=== PATIENT | male | born 2000 | race Caucasian/White ===

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

== ENCOUNTER 2020-01-11 19:36 | Emergency (ER) | payer OTHER ==
[2020-01-11] MEDS ORDERED: LORazepam 2 MG/ML VIAL IM STA (20:11)
--- NOTE | 2020-01-11 20:56 | ED Physician Documentation ---
PD HPI ALTERED MENTAL STATUS - Stated complaint Stated Complaint: DIFF TALKING - Chief complaint Chief Complaint: Neuro - History obtained from History obtained from: Patient, Family (dad) - Additional information Additional information: 19-year-old gentleman with history of some psychiatric disorders, OCD and occasional tics suddenly stopped talking about an hour ago. His tics also got worse at the same time. Most of the history is from the dad but the patient is able to nod and shake his head to questions. Review of Systems Unable to obtain: Uncooperative PD PAST MEDICAL HISTORY - Past Medical History Cardiovascular: None Respiratory: None Endocrine/Autoimmune: None GI: None : None HEENT: None Psych: Depression, Anxiety Musculoskeletal: None Derm: None - Past Surgical History Past Surgical History: No HEENT: Other - Present Medications Home Medications: Ambulatory Orders Medication Instructions Recorded Confirmed clonazePAM [Clonazepam] 1 mg PO BID 04/07/17 05/01/17 Venlafaxine ER [Effexor ER] 187.5 mg PO DAILY 03/27/18 03/27/18 - Allergies Allergies/Adverse Reactions: Allergies Allergy/AdvReac Type Severity Reaction Status Date / Time No Known Drug Allergies Allergy Verified 03/30/18 13:10 - Social History Does the pt smoke?: No Smoking Status: Never smoker Does the pt drink ETOH?: No Does the pt have substance abuse?: No - Immunizations Immunizations are current?: Yes - POLST Patient has POLST: No PD ED PE NORMAL - Vitals Vital signs reviewed: Yes - General General: No acute distress, Well developed/nourished - HEENT HEENT: PERRL, EOMI, Ears normal, Pharynx benign - Neck Neck: Supple, no meningeal sign, No bony TTP - Cardiac Cardiac: RRR, No murmur - Respiratory Respiratory: No respiratory distress, Clear bilaterally - Abdomen Abdomen: Normal bowel sounds, Soft, Non tender - Back Back: No CVA TTP, No spinal TTP - Derm Derm: Normal color, Warm and dry - Extremities Extremities: No edema, No calf tenderness / cord - Neuro Neuro: No motor deficit, No sensory deficit, Normal speech Eye Opening: Spontaneous Motor: Obeys Commands Verbal: None GCS Score: 11 Results - Vitals Vitals: Vital Signs - 24 hr 01/11/20 01/11/20 19:39 20:06 Temperature 37.1 C Heart Rate 82 64 Respiratory 18 18 Rate Blood Pressure 150/77 H 129/85 H O2 Saturation 100 98 Oxygen O2 Source Room air PD MEDICAL DECISION MAKING - ED course ED course: This is a 19-year-old who presents with an acute aphasia. He is able to read and write fluently though, and his neurologic exam is otherwise normal except for some tics. This is very consistent with a conversion disorder. We talked at length with the patient and his father about this diagnosis, the pathophysiology and he seemed very understanding. We trialed an injection of Ativan which helped with the tics but did not help with the aphasia. They were offered at that point either tele-psychiatric Consultation, further medications, or discharge. They opted for trial of Haldol and then discharged home. Departure - Departure Disposition: 01 Home, Self Care Clinical Impression: Conversion disorder Condition: Good Record reviewed to determine appropriate education?: Yes Instructions: ED Conversion Disdr Conversion Reac Comments: Return or call your psychiatrist in the morning if not better, sooner for new or worsening symptoms.
[2020-01-11] MEDS ORDERED: haloperidoL 1 MG TABLET PO STA (21:06)
[2020-01-11 21:18] VITALS: BP 130/85
== END 2020-01-11 21:15 | disposition home or self-care (01) ==
LOC: ED 19:36
DX: F44.9 Dissociative and conversion disorder, unspecified (principal); F95.9 Tic disorder, unspecified; F42.9 Obsessive-compulsive disorder, unspecified
CPT/HCPCS: 96372; 99281; 99283; A9270; J2060

== ENCOUNTER 2020-08-10 18:39 | Outpatient (CLI) | payer OTHER | END 2020-08-10 18:40 | disposition critical access hospital (66) | LOC: EMS 18:39 | PROVIDERS: ATTEND Emergency Medicine | DX: G83.9 Paralytic syndrome, unspecified (principal); R47.01 Aphasia | CPT/HCPCS: A0425; A0429 ==

== ENCOUNTER 2020-08-10 19:19 | Emergency (ER) | payer OTHER ==
[2020-08-10] MEDS ORDERED: HALOPERIDOL 5 MG/ML VIAL IM STA (22:59)
[2020-08-10 23:30] VITALS: BP 153/74
--- NOTE | 2020-08-11 00:20 | ED Physician Documentation ---
History of Present Illness - Stated complaint Stated Complaint: AMS - Chief complaint Chief Complaint: General - History obtained from History obtained from: Family (Father) - Additonal information Additional information: 20-year-old male with past medical history of conversion disorder with catatonic behavior, anxiety and depression on Zoloft and Klonopin as needed presents with unresponsiveness upon waking at 3 PM. His father accompanies him to the emergency department today, stating that he has had episodes like this in the past but never this severe. He was acting normal yesterday and then upon waking from a nap at 3 PM today he was minimally speaking. This worsened to the point that he was not talking at all and was staring at the wall, not interacting with family. Upon arrival to the emergency department patient is catatonic, staring at the wall and not interacting. Further history limited by this. Review of Systems Unable to obtain: AMS PD PAST MEDICAL HISTORY - Past Medical History Past Medical History: Yes Cardiovascular: None Respiratory: None Endocrine/Autoimmune: None GI: None : None HEENT: None Psych: Depression, Anxiety Musculoskeletal: None Derm: None - Past Surgical History Past Surgical History: No HEENT: Other - Present Medications Home Medications: Ambulatory Orders Medication Instructions Recorded Confirmed clonazePAM [Clonazepam] 1 mg PO BID 04/07/17 05/01/17 Venlafaxine ER [Effexor ER] 187.5 mg PO DAILY 03/27/18 03/27/18 - Allergies Allergies/Adverse Reactions: Allergies Allergy/AdvReac Type Severity Reaction Status Date / Time No Known Drug Allergies Allergy Verified 08/10/20 19:32 - Social History Does the pt smoke?: No Smoking Status: Never smoker Does the pt drink ETOH?: No Does the pt have substance abuse?: No - Immunizations Immunizations are current?: Yes - POLST Patient has POLST: No PD ED PE NORMAL - Vitals Vital signs reviewed: Yes - General General: No acute distress, Well developed/nourished, Other (eyes open, staring at wall, not responding to verbal cues) - HEENT HEENT: Atraumatic, PERRL, EOMI - Neck Neck: Supple, no meningeal sign - Cardiac Cardiac: RRR - Respiratory Respiratory: No respiratory distress, Clear bilaterally - Abdomen Abdomen: Non tender, Non distended - Derm Derm: Normal color - Extremities Extremities: No deformity - Neuro Neuro: Other (staring at wall, without obvious signs of distress) - Psych Psych: Other (catatonic behavior) Results - Vitals Vitals: Vital Signs - 24 hr 08/10/20 08/10/20 19:28 23:29 Temperature 37.4 C Heart Rate 93 91 Respiratory 14 14 Rate Blood Pressure 152/74 H 153/74 H O2 Saturation 98 98 Oxygen O2 Source Room air PD MEDICAL DECISION MAKING - ED course ED course: 20-year-old man with history of conversion disorder, anxiety, depression presents with catatonic behavior. Will trial Haldol since this is worked for him in the past. He has a psychiatrist that he is going to follow-up with however father cannot remember the name. 12:30am - per RN report, patient got up out of bed and walked out the front door. father is going to look for him now. 1am - father found the patient and they are in the car together. I communicated through nursing that we would like them to return to the ED to reassess but they may just drive home at this time.
== END 2020-08-11 00:28 | disposition left against medical advice (07) ==
LOC: EDUNIT# → ED 19:19
DX: F44.89 Other dissociative and conversion disorders (principal); F06.1 Catatonic disorder due to known physiological condition; F41.9 Anxiety disorder, unspecified; F32.9 Major depressive disorder, single episode, unspecified
CPT/HCPCS: 96372; 99281; 99283

== ENCOUNTER 2020-11-19 08:00 | Outpatient (CLI) | payer OTHER ==
[2020-11-19 18:08] LABS: BASOPHILS % (AUTO) 0.4 %; EOSINOPHILS # (AUTO) 0.2 10^3/uL (0.0-0.7); EOSINOPHILS % (AUTO) 2.4 %; HCT - HEMATOCRIT 46.4 % (42.0-52.0); HGB - HEMOGLOBIN 15.6 g/dL (14.0-18.0); LYMPHOCYTES # (AUTO) 2.3 10^3/uL (1.5-3.5); LYMPHOCYTES % (AUTO) 30.1 %; MEAN CORPUSCULAR HEMOGLOBIN 29.8 pg (27.0-31.0); MEAN CORPUSCULAR HGB CONC 33.6 g/dL (32.0-36.0); MEAN CORPUSCULAR VOLUME 88.7 fL (80.0-94.0); MEAN PLATELET VOLUME 9.3 fL (7.4-11.4); MONOCYTES # (AUTO) 0.7 10^3/uL (0.0-1.0); MONOCYTES % (AUTO) 8.7 %; NEUTROPHILS # (AUTO) 4.5 10^3/uL (1.5-6.6); PLT - PLATELET COUNT 293 10^3/uL (130-450); RED BLOOD COUNT 5.23 10^6/uL (4.70-6.10); RED CELL DISTRIBUTION WIDTH 12.2 % (12.0-15.0); WHITE BLOOD COUNT 7.8 x10^3/uL (4.8-10.8)
[2020-11-19 18:50] LABS: ALBUMIN 4.5 g/dL (3.2-5.5); ALBUMIN/GLOBULIN RATIO 1.5 (1.0-2.2); BILIRUBIN,TOTAL 0.5 mg/dL (0.2-1.0); CALCIUM 9.8 mg/dL (8.5-10.3); CREATININE 0.9 mg/dL (0.6-1.2); POTASSIUM 4.2 mmol/L (3.5-5.0); TOTAL PROTEIN 7.6 g/dL (6.7-8.2)
== END 2020-11-19 23:59 | disposition home or self-care (01) ==
LOC: LAB.S 08:00
PROVIDERS: ATTEND Physician Assistant Medical
DX: R50.9 Fever, unspecified (principal); R53.83 Other fatigue; B34.9 Viral infection, unspecified; Z20.822 Contact with and (suspected) exposure to COVID-19
CPT/HCPCS: 36415; 80053; 85025

== ENCOUNTER 2020-11-30 12:04 | Outpatient (CLI) | payer OTHER ==
--- NOTE | 2020-11-30 12:39 | XRAY Report ---
PROCEDURE: Chest 2 View X-Ray INDICATIONS: DYSPNEA ON EXERTION TECHNIQUE: 2 view(s) of the chest. COMPARISON: None. FINDINGS: Surgical changes and devices: None. Lungs and pleura: No pleural effusions or pneumothorax. Increased bronchovascular markings in bilate ral hilar region are seen with mild bronchial wall thickening. No definite focal infiltrate. Mediastinum: Mediastinal contours are normal. Heart size is normal. Bones and chest wall: No suspicious bony abnormalities. Soft tissues appear unremarkable. IMPRESSION: Suggestion of mild reactive airway disease such as bronchitis or asthma. No focal infilt rate, pleural effusion or pneumothorax. Reviewed by: Erick Sabillon MD on 11/30/2020 12:38 PM PDT Approved by: Erick Sabillon MD on 11/30/2020 12:38 PM PDT Station ID: [id number]
[2020-11-30 14:54] LABS: BASOPHILS % (AUTO) 0.7 %; EOSINOPHILS # (AUTO) 0.1 10^3/uL (0.0-0.7); EOSINOPHILS % (AUTO) 1.5 %; HCT - HEMATOCRIT 45.1 % (42.0-52.0); LYMPHOCYTES # (AUTO) 1.9 10^3/uL (1.5-3.5); LYMPHOCYTES % (AUTO) 31.9 %; MEAN CORPUSCULAR HEMOGLOBIN 29.5 pg (27.0-31.0); MEAN CORPUSCULAR HGB CONC 33.3 g/dL (32.0-36.0); MEAN CORPUSCULAR VOLUME 88.6 fL (80.0-94.0); MEAN PLATELET VOLUME 9.8 fL (7.4-11.4); MONOCYTES # (AUTO) 0.5 10^3/uL (0.0-1.0); MONOCYTES % (AUTO) 8.5 %; NEUTROPHILS # (AUTO) 3.4 10^3/uL (1.5-6.6); NEUTROPHILS % (AUTO) 57.2 %; PLT - PLATELET COUNT 244 10^3/uL (130-450); RED BLOOD COUNT 5.09 10^6/uL (4.70-6.10); RED CELL DISTRIBUTION WIDTH 12.3 % (12.0-15.0); WHITE BLOOD COUNT 5.9 x10^3/uL (4.8-10.8)
[2020-11-30 15:19] LABS: INFECTIOUS MONONUCLEOSIS NEGATIVE (Negative)
[2020-11-30 15:36] LABS: ALBUMIN 4.8 g/dL (3.2-5.5); ALBUMIN/GLOBULIN RATIO 1.7 (1.0-2.2); CALCIUM 9.9 mg/dL (8.5-10.3); CREATININE 0.9 mg/dL (0.6-1.2); MAGNESIUM 2.1 mg/dL (1.7-2.8); POTASSIUM 4.1 mmol/L (3.5-5.0); TOTAL PROTEIN 7.7 g/dL (6.7-8.2)
[2020-12-03 07:17] LABS: CMV DNA QN RT PCR <200 IU/mL; SOURCE BLOOD
[2020-12-03 18:46] LABS: SOURCE WHOLE BLOOD
== END 2020-11-30 12:05 | disposition home or self-care (01) ==
LOC: DI.S 12:04
PROVIDERS: ATTEND Nurse Practitioner Family
DX: R06.09 Other forms of dyspnea (principal); R53.83 Other fatigue
CPT/HCPCS: 36415; 80053; 81599; 82607; 83735; 85025; 86308; 87497; 87798

== ENCOUNTER 2020-12-27 14:49 | Outpatient (CLI) | payer OTHER ==
[2020-12-27 15:50] VITALS: BP 111/71
--- NOTE | 2020-12-27 15:50 | SLEEP CARE CONSULTATION ---
Information from patient questionnaire entered by Amelia Guzman. I have reviewed and concur with the information entered by Amelia Guzman. This document represents the service I personally performed and the decisions made by me, Kia Vital ARNP. History of Present Illness Service Date and Time: 12/27/2020 1449 Reason for Visit: New patient Chief Complaint: reports: Unrefreshed sleep, Excessive daytime sleepiness, Fatigue, Other (sleeping 10-12 hours a night) Date of Onset: 7 weeks Usual bedtime: 12 am Time it takes to fall asleep: 1 hour Snores at night: No Observed to quit breathing while asleep: No Sleeps alone due to snoring: No (N/A) Number of times waking at night: 3 Reasons for waking at night: reports: Other (unknown reason). denies: Choking, Gasping for air Toss, Turn, or Twitch while sleeping: Yes Recalls having dreams: Yes Usually gets out of bed at: 11:30 am Feels refreshed in the morning: No Morning headache: Yes (resolves when I take painkillers) Sleepy or fatigued during the day: Yes Ever fallen asleep while driving: No Takes day naps: No Dreams during day naps: Yes Prior sleep studies: Yes Year and Where: 2016 - [facility], [place] in [place], [place] Additional HPI information: I had the pleasure of seeing MER[facility] MCNEILL today regarding the possibility of him having a sleep disorder. His current complaints are excessive daytime sleepiness, fatigue and unrefreshed sleep. He states that no one has told him he snores or has any pauses in breathing when he sleeps. He is just very tired during the day and does not feel like he is getting rested when he sleeps. He had a previous sleep study around March 2017 at [facility] when he was 16 years old. He had a Moderna Covid vaccination about 7 weeks ago. Since that time he feels weak, not wanting to move much and sleeping 11-12 hours a night. He doesn't feel rested when he wakes up. He is not working because he does not have energy to work. His PCP has referred him to cardiology for some chest discomfort he has experienced and is checking for a stomach ulcer too. He feels he has always been more tired than other, especially since taking sertra line. He has a history of depression. He states in the last year his depression has improved with Transcranial Magnetic Stimulation therapy he did this in the last 6 months. He stopped this 2 weeks ago. He states he has chronic congestion in his nose, hard to breathe effectively. He usually can fall asleep within an hour of laying down. He occasionally has taken Melatonin to help his go to sleep. He uses a sinus rinse and sometimes Flonase to reduce the nose congestion. - Parasomnia Symptoms Ever been unable to move upon waking from sleep: No Walks in sleep: No Talks in sleep: No Ever acted out dreams in sleep: Yes (occasionally will kick or hit something as waking up) Ever felt weak in the knees when startled or emotional: No Bothered by creepy, crawly, restless sensations in legs: Yes (feet twitch when he lays down) Problems with memory or concentration: No Subjective Initial [place] Sleepiness Scale score: 3 (in 2020) Past Medical History Past Medical History: reports: Anxiety, Depression Social History The patient's occupation is a Not Employed, to tired to work. Patient is Single and lives in [place]. Have you smoked in the past 12 months: No Alcohol use: No Caffeine use: No Family History Family history of sleep disordered breathing: Yes Family Hx Sleep Apnea: Mother: Snoring, Sleep apnea - Treated (uncle), Father: Snoring, Other: Sleep apnea - Treated Allergies and Home Medications Drug allergies reviewed: Yes (NKDA) Home medication list reviewed: Yes Allergy and home medication list: Sertraline Flonase Terbinafine Multivitamins Review of Systems Cardiovascular: reports: chest pain. denies: high blood pressure Respiratory: reports: shortness of breath Gastrointestinal: reports: nausea, abdominal pain. denies: heartburn Neurological: reports: headaches Psychiatric: reports: anxiety, depression Ear/Nose/Throat: reports: nasal congestion, sinus problems, injury to nose (deviated septum repaired and turbinate reduction too in Fall 2018), other (septoplasty). denies: tonsillectomy, wisdom teeth removed Endocrine: reports: sluggishness, excessive thirst, unexplained weakness. denies: thyroid disease Immunologic: reports: allergies to food or environment (lactose intolerant) Physical Exam Blood Pressure: 111/71 Cuff size: wrist Heart Rate: 82 O2 Saturation: 98 Height: 6 ft 3 in Weight: 178 lb Body Mass Index: 22.2 BMI Classification: Healthy weight Neck circumference: 14.75 (inches) Mouth and throat: narrow oropharynx Hard palate: normal Uvula: normal Uvula visualization: 100% Mallampati Class I Tongue: enlarged in size with teeth whitaker on lateral edges Tonsils: small Chin and jaw: normal size and position Neck: normal w/o lymphadenopathy or thyromegaly Heart: regular rate and rhythm Lungs: clear bilaterally Impression and Plan 1. Suspected Obstructive Sleep Apnea-Hypopnea Syndrome, as suggested by a history of unrefreshed sleep, cognitive impairment, and excessive daytime sleep iness. Narrow oropharynx and obesity are common predisposing factors for obstructive sleep apnea-hypopnea syndrome. I recommend proceeding to polysomnography to confirm the diagnosis and to assess severity. If the patient has significant sleep disordered breathing, a manual CPAP titration study will also be performed to find the optimal treatment pressure. I informed the patient of what the sleep studies involve and after some discussion, obtained agreement to proceed. The pathophysiology of obstructive sleep apnea-hypopnea syndrome was discussed with the patient and health risks of cardiovascular and cerebrovascular disease if not treated. Risks of drowsy driving discussed in detail and patient advised to avoid long distance driving and to pullman car clerk at the first sign of drowsiness. Patient agreed to plan. * Schedule polysomnography +- manual CPAP titration study and return in 1-2 weeks after the study to discuss result and initiate therapy. * Avoid long distance driving or driving when feeling sleepy. * Avoid, sedative and muscle relaxant around bedtime. * Maintain a healthy weight. * Review instructions provided by trained office staff on how to prepare for the sleep study. * Return for follow-up after sleep study completed. Counseling Topics: Weight control Visit Type: In Office Time Spent with Patient (minutes): 30 Provider Statement: I spent 100% of the Face to Face Visit with the patient with greater than 50% spent counseling the patient and coordination of care.
== END 2020-12-27 14:50 | disposition home or self-care (01) ==
LOC: SC 14:49
PROVIDERS: ATTEND Nurse Practitioner Family
DX: G47.10 Hypersomnia, unspecified (principal); G47.8 Other sleep disorders; R41.89 Other symptoms and signs involving cognitive functions and awareness
CPT/HCPCS: 99203; 99212

== ENCOUNTER 2021-01-03 13:09 | Outpatient (CLI) | payer OTHER | END 2021-01-03 13:10 | disposition home or self-care (01) | LOC: SC 13:09 | PROVIDERS: ATTEND Nurse Practitioner Family | DX: G47.33 Obstructive sleep apnea (adult) (pediatric) (principal); R09.02 Hypoxemia | CPT/HCPCS: 95806 ==

== ENCOUNTER 2021-01-24 13:03 | Outpatient (CLI) | payer OTHER ==
--- NOTE | 2021-01-24 13:28 | SLEEP CARE CONSULTATION ---
Information from patient questionnaire entered by Amelia Guzman. I have reviewed and concur with the information entered by Amelia Guzman. This document represents the service I personally performed and the decisions made by , Kia Vital ARNP. History of Present Illness Service Date and Time: 01/24/2021 1300 Initial Hudson Sleepiness Scale score: 3 (in 2020) Current Hudson Sleepiness Scale score: 3 Additional HPI information: [facility] returns via Telehealth visit for follow up and results of the recently performed home sleep study. I explained the pathophysiology behind obstructive sleep apnea. We then spent quite a bit of time discussing different treatment options. For mild obstructive sleep apnea, surgery and oral appliance are alternatives to nasal CPAP therapy but in moderate or severe cases, nasal CPAP is the most effective and reliable treatment. Because apnea is primarily in supine position, then positional management therapy could be effective. Methods discussed such as positioning with pillows, using a T-shirt with tennis balls in the back, and shown commercial products that have a pillow format on back to prevent supine sleep. I reviewed the impact of weight changes on sleep apnea and strongly recommended losing weight. Sleep Study - Results Type of Sleep Study: Home sleep study Prior sleep studies: Yes Year and Where: 2017 - [facility] in [place], [place] Polysomnography/Home Sleep Study results: Physician Impression: The quality of the study is good. The length of the study is adequate (> 240 minutes). Please also see the tabulated and graphic data. 1. Obstructive Sleep Apnea-Hypopnea (ICD-10 G47.33), mild, with an AHI of 5.5/hr and adonis SaO2 of 89%. During the study, the patient had 56 apneas (55 obstructive, 0 central, 1 mixed) and 6 hypopneas. The longest episode lasted 59.5 seconds. The respiratory events occurred more frequently during supine sleep (supine AHI was 6.8 and non-supine, 4.83). 2. Hypoxemia (ICD-10 R09.02), mild, with the lowest oxygen saturation of 89 % and 1.9 minutes with SaO2 under 90%. Baseline oxygen saturation was normal (Average oxygen saturation was 95%). Allergies and Home Medications Home medication list reviewed: Yes (stopped Fomotidine, Turbinefine) Review of Systems Review of systems same as previous: Yes (no changes) Physical Exam Vital signs obtained and entered by: Telehealth visit to reduce exposure during Covid Pandemic Height: 6 ft 3 in Impression and Plan 1. Obstructive Sleep Apnea-Hypopnea Syndrome, mild, with lowest oxygen saturation of 89%. Obviously this is the cause of the patients symptoms of unrefreshed sleep, and excessive daytime sleepiness. Positive pressure therapy could benefit depression/anxiety. I spent some time discussing the different types of therapy that would work. He will practice positional therapy while he is deciding on whether he wants to go with CPAP or oral appliance. Patient to call back within the next month with his decision. 2. Hypoxemia, mild, with the lowest oxygen saturation of 89 % and 1.9 minutes with SaO2 under 90%. His baseline oxygen saturation was normal with an average oxygen saturation of 95%. * Patient to call with decision on therapy type he would like to go with * Maintain a healthy weight. * Avoid alcohol consumption near bedtime. * Avoid supine sleep * The patient is again cautioned about driving until sleepiness completely resolves. * Return dependant upon type of therapy chosen. Counseling Topics: Weight control Visit Type: Telehealth Video Video Type: Edgar Location of Provider: Office Patient agrees and consents to this telehealth visit type: Yes Patient agrees to have their insurance billed: Yes Time Spent with Patient (minutes): 23 Provider Statement: I spent 100% of the Telehealth Video Call with the patient with greater than 50% spent counseling the patient and coordination of care.
== END 2021-01-24 13:04 | disposition home or self-care (01) ==
LOC: SC 13:03
PROVIDERS: ATTEND Nurse Practitioner Family
DX: G47.33 Obstructive sleep apnea (adult) (pediatric) (principal)

== ENCOUNTER 2022-09-27 08:00 | Outpatient (CLI) | payer OTHER ==
[2022-09-28 00:30] LABS: CHLAMYDIA TRACHOMATIS DNA NEGATIVE (NEGATIVE); NEISSERIA GONORRHOEAE DNA NEGATIVE (NEGATIVE); TRICHOMONAS VAGINALIS DNA NEGATIVE (NEGATIVE)
== END 2022-09-27 23:59 | disposition home or self-care (01) ==
LOC: LAB.N 08:00
PROVIDERS: ATTEND Physician Assistant
DX: R30.0 Dysuria (principal)
CPT/HCPCS: 87077; 87086; 87181; 87491; 87591; 87661